=== PATIENT | female | born 1945 | race African-American/Black ===

== ENCOUNTER 2021-02-04 18:35 | Inpatient (IN) | payer OTHER ==
[~2021-02-04] VITALS: Ht 149.9 cm; Wt 100.2 kg
[~2021-02-04 18:35] MED LIST: AMLO-187 PO; CARV6.253 PO; CLOP75TA PO; FURO20TA3 PO; GLIP10TA13 PO; HYDR100T24 PO; INSU100I13 SQ; LEVO150T5 PO; PANT40TA6 PO; SIMV20TA18 PO; SPIR50TA4 PO
[2021-02-04 21:34] LABS: BILIRUBIN,URINE MODERATE (NEG); CLARITY,URINE CLOUDY; COLOR,URINE ORANGE; NITRITE,URINE NEGATIVE (NEG); PH,URINE 5.5 (<5.0-8.0); PROTEIN,URINE 100 mg/dL (NEG-TRACE)
[2021-02-04 22:06] LABS: BASO # 0.1 x10^3/uL (0.0-0.2); BASO % 1 % (0-3); EOS % 0 % (0-3); HEMATOCRIT 43.6 % (36.0-47.0); HEMOGLOBIN 14.3 g/dL (12.0-15.5); LYMPH % 8 % (24-48); MEAN CORPUSCULAR HEMOGLOBIN 27 pg (25-35); MEAN CORPUSCULAR HGB CONC 33 g/dL (31-37); MEAN CORPUSCULAR VOLUME 83 fL (79-100); MONO # 0.8 x10^3/uL (0.0-1.1); MONO % 6 % (0-9); NEUT # 11.4 x10^3/uL (1.8-7.7); NEUT % 86 % (31-73); PLATELET COUNT 270 x10^3/uL (140-400); RED BLOOD COUNT 5.26 x10^6/uL (3.50-5.40); RED CELL DISTRIBUTION WIDTH 15.3 % (11.5-14.5); WHITE BLOOD COUNT 13.3 x10^3/uL (4.0-11.0)
--- NOTE | 2021-02-04 22:07 | PHYS DOC ---
Past Medical History Past Medical History: CHF, Diabetes-Type II, High Cholesterol, Hypertension, Hypothyroid Past Surgical History: Hysterectomy, Other Additional Past Surgical Histo: EYE SURGERY Smoking Status: Never Smoker Alcohol Use: None General Adult EDM: Chief Complaint: CONSTIPATION HPI: HPI: Patient is a 75 year old female with history of CHF, DM, HTN, HLD who presents with 9 days of constipation. Has been straining to have bowel movements, but is not having anything come out. Does continue to pass gas. Has continued to eat and drink, but has a lower appetite than usual. Denies nausea/vomiting. No fevers, but does endorse occasional chills. States that she thinks this is due to her taking Tylenol 3 (with codeine). Has not taken any laxatives or stool softeners. Denies any rectal discomfort with attempts at bowel movements. Surgical history includes hysterectomy. During this timeframe, she has been unable to get herself up out of a chair well. His been having to have family help her, but no one lives with her full- time. She is concerned that she is unable to take care of her self at home. Review of Systems: Review of Systems: Constitutional: Denies fever reports occasional chills.] Eyes: Denies change in visual acuity. [] HENT: Denies nasal congestion or sore throat. [] Respiratory: Denies cough or shortness of breath. [] Cardiovascular: Denies chest pain or edema. [] GI: Denies abdominal pain, nausea, vomiting, bloody stools or diarrhea. Reports constipation [] : Denies dysuria. [] Musculoskeletal: Denies back pain or joint pain. [] Integument: Denies rash. [] Neurologic: Denies headache, focal weakness or sensory changes. [] Endocrine: Denies polyuria or polydipsia. [] Lymphatic: Denies swollen glands. [] Psychiatric: Denies depression or anxiety. [] Heart Score: C/O Chest Pain: No Allergies: Allergies: Allergies Coded Allergies Type Severity Reaction Last Updated Verified No Known Drug Allergies 12/12/15 No Physical Exam: PE: Constitutional: Appears very weak, required full 2 person assist from wheelchair to bed and almost slipped off of bed onto the floor. HENT: Normocephalic, atraumatic Eyes: PERRLA, EOMI, conjunctiva normal, no discharge. [] Neck: Normal range of motion, no tenderness, supple, no stridor. [] Cardiovascular:Heart rate regular rhythm, no murmur [] Lungs & Thorax: Bilateral breath sounds clear to auscultation [] Abdomen: Soft, RLQ and LLQ ttp. Rectal: no stool, blood or masses on BURAK. Skin: Warm, dry, no erythema, no rash. [] Back: No tenderness, no CVA tenderness. [] Extremities: No tenderness, no cyanosis, no clubbing, ROM intact, no edema. [] Neurologic: Alert and oriented X 3, normal motor function, normal sensory function, no focal deficits noted. [] Psychologic: Affect normal, judgement normal, mood normal. [] EKG: EKG: [] Radiology/Procedures: Radiology/Procedures: [] Impression: [facility] [address] [place] [address] IMAGING REPORT Signed PATIENT: ABBIE SANON ACCOUNT: [id number] : 1945 LOCATION: ER AGE: 75 SEX: F EXAM STATUS: REG ER ORD. PHYSICIAN: SINCERE STEVENS MD REASON: constipation, abd pain, r/o obstruction;OMNI 300, 60ML PROCEDURE: CT ABD PELV W/ IV CONTRST ONLY Examination: CT of the abdomen pelvis with IV contrast HISTORY: History of constipation, abdominal pain COMPARISON: None available TECHNIQUE: Axial CT images of the abdomen pelvis were performed with IV contrast. Coronal and sagittal reformats are performed Exposure: One or more of the following individualized dose reduction techniques were utilized for this examination: 1. Automated exposure control 2. Adjustment of the mA and/or kV according to patient size 3. Use of iterative reconstruction technique FINDINGS: Mild bibasilar lungs are clear. No evidence of free air identified in the abdomen. The liver, spleen, adrenals grossly appears unremarkable. The gallbladder is mildly distended. Moderate-sized hiatal hernia. Stomach is mildly distended. The visualized pancreas grossly appears unremarkable. The small bowel is nondilated. Moderate amount of feces identified in the colon. Multiple sigmoid colon diverticulosis. Mild fat stranding identified about the sigmoid colon. The appendix is normal. The urinary bladder is mildly distended. The bilateral kidneys enhance symmetrically. Moderate degenerative changes lumbar spine. IMPRESSION: 1. Multiple sigmoid colon diverticulosis. Mild fat stranding identified about the sigmoid colon could be mild diverticulitis. 2. Moderate-sized hiatal hernia. Electronically signed by: Saul Rush MD (02/04/2021 11:20 PM) [id number] DICTATED and SIGNED BY: SAUL RUSH MD DATE: 02/04/21 [id number] 0 Course & Med Decision Making: Course & Med Decision Making Pertinent Labs and Imaging studies reviewed. (See chart for details) Patient is 75-year-old female history of DM, CHF, HTN, HLD, hysterectomy who presents with 9 days of constipation in the setting of taking Tylenol with codeine. On exam she is generally weak, and required a full 2 person assist from wheelchair to the bed, and almost fell to the floor in doing so. She does live alone, I do not feel that she will be safe to return home. No rectal impaction on exam. Regarding her constipation, opiate effect does seem most likely, however she does have tenderness to palpation on examination. Will obtain CT abdomen/pelvis to exclude mass, partial obstruction. Patient will require admission following completion of her ED work-up. She is agreeable to this plan. 2206 CT shows concern for diverticulitis, white count elevated, and she does have left lower quadrant tenderness to palpation. We will treat with p.o. Augmentin. [id number] Dragon Disclaimer: Dragon Disclaimer: This electronic medical record was generated, in whole or in part, using a voice recognition dictation system. Departure Departure Impression: Primary Impression: Unable to care for self Additional Impressions: Diverticulitis Constipation Disposition: ADMITTED INPATIENT Admitting Physician: KAVEH PHOENIX) Condition: STABLE Referrals: UNKNOWN PCP NAME (PCP) SINCERE STEVENS MD Feb 04, 2021 22:07
[2021-02-04 22:08] LABS: BACTERIA,URINE MANY /HPF (0-FEW); HYALINE CASTS, URINE FEW /HPF; RBC,URINE 0 /HPF (0-2)
[2021-02-04 22:19] LABS: CREATININE 1.2 mg/dL (0.6-1.0); GFR 53.1; POTASSIUM 3.7 mmol/L (3.5-5.1)
[2021-02-04 22:26] LABS: ALBUMIN 3.3 g/dL (3.4-5.0); ALBUMIN/GLOBULIN RATIO 0.6 (1.0-1.7); TOTAL BILIRUBIN 0.5 mg/dL (0.2-1.0); TOTAL PROTEIN 8.6 g/dL (6.4-8.2)
[2021-02-04] MEDS ORDERED: CONTRAST GIVEN. MC PRN (23:00)
[2021-02-04] MEDS ORDERED: IOHEXOL 300 MG/ML 100ML VIAL. IV ONE (23:00)
--- NOTE | 2021-02-04 23:23 | RAD ---
Examination: CT of the abdomen pelvis with IV contrast HISTORY: History of constipation, abdominal pain COMPARISON: None available TECHNIQUE: Axial CT images of the abdomen pelvis were performed with IV contrast. Coronal and sagitta l reformats are performed Exposure: One or more of the following individualized dose reduction techniques were utilized for thi s examination: 1. Automated exposure control 2. Adjustment of the mA and/or kV according to patient size 3. Use of iterative reconstruction technique FINDINGS: Mild bibasilar lungs are clear. No evidence of free air identified in the abdomen. The liver, spleen, adrenals grossly appears unremarkable. The gallbladder is mildly distended. Moderate-sized hiatal he rnia. Stomach is mildly distended. The visualized pancreas grossly appears unremarkable. The small agatha wel is nondilated. Moderate amount of feces identified in the colon. Multiple sigmoid colon diverticu losis. Mild fat stranding identified about the sigmoid colon. The appendix is normal. The urinary ric dder is mildly distended. The bilateral kidneys enhance symmetrically. Moderate degenerative changes lumbar spine. IMPRESSION: 1. Multiple sigmoid colon diverticulosis. Mild fat stranding identified about the sigmoid colon coul d be mild diverticulitis. 2. Moderate-sized hiatal hernia. Electronically signed by: Saul Rush MD (02/04/2021 11:20 PM) [id number]
[2021-02-04] MEDS ORDERED: POLYETHYLENE GLYCOL 3350 17 GM PACKET. PO ONE (23:30)
[2021-02-04] MEDS ORDERED: AMOXICILLIN/K CLAV 875/125MG TABLET. PO ONE (23:30)
[2021-02-04 23:56] LABS: PLT ESTIMATE ADEQUATE (ADEQUATE)
[2021-02-05] MEDS ORDERED: ACET1TAB33 PO (01:05)
[2021-02-05] MEDS ORDERED: METF-658 PO (01:05)
[2021-02-05] MEDS ORDERED: HYDR100T24 PO (01:05)
[2021-02-05] MEDS ORDERED: SPIR50TA4 PO (01:05)
[2021-02-05 01:09] VITALS: BP 187/85
[2021-02-05] MEDS ORDERED: LABETALOL 20 MG/4 ML DISP.SYRIN. IVP PRN (01:45)
[2021-02-05] MEDS ORDERED: MORPHINE SULFATE 4 MG/ML INJ. IV PRN (01:45)
[2021-02-05 03:11] VITALS: BP 143/65
--- NOTE | 2021-02-05 07:28 | PDOC1 ---
History and Physical Date of Admission Date of Admission DATE: 02/05/21 TIME: 06:42 Identification/Chief Complaint Chief Complaint Constipation Source Source: Chart review, Patient History of Present Illness History of Present Illness Patient is a 75-year-old female with past medical history of CHF, HTN, DM2, presents to the ED with complaints of constipation and lower abdominal pain. She reports associated decreased appetite. Continues to have flatus. States she feels her symptoms are due to her taking Tylenol 3. She has not tried any laxatives or stool softeners for her symptoms. She denies any nausea or vo miting. She does also note some generalized weakness and is concerned that she is unable to take care of herself as she lives alone. In the ED she was requiring 2 person assist from wheelchair to bed. Labs on admission showed WBC 13.3, BUN 24, creatinine 1.2, EGFR 53.1, CBG 128, albumin 3.3. CT abdomen pelvis multiple sigmoid colon diverticulosis, mild fat stranding identified about the sigmoid colon could be mild diverticulitis. She received MiraLAX and Augmentin in the ED. Will admit patient for further medical management. Past Medical History Cardiovascular: CAD, CHF, HTN, Hyperlipidemia Pulmonary: No pertinent hx CENTRAL NERVOUS SYSTEM: Other GI: GERD Heme/Onc: No pertinent hx Hepatobiliary: No pertinent hx Psych: No pertinent hx Musculoskeletal: Osteoarthritis Rheumatologic: No pertinent hx Infectious disease: No pertinent hx Renal/: No pertinent hx Endocrine: Diabetes, Hypothyroidism Past Surgical History Past Surgical History: Cataract Removal, Hysterectomy Family History Family History: Hypertension Social History Smoke: No ALCOHOL: none Drugs: None Current Problem List Problem List Problems Medical Problems: (1) Constipation Status: Acute (2) Diverticulitis Status: Acute (3) Unable to care for self Status: Acute Current Medications Current Medications Current Medications Iohexol (Omnipaque 300 Mg/ml) 60 ml 1X ONCE IV ; Start 02/04/21 at 23:00; Stop 02/04/21 at 23:01; Status DC Info (CONTRAST GIVEN -- Rx MONITORING) 1 each PRN DAILY PRN MC SEE COMMENTS; Start 02/04/21 at 23:00; Stop 02/06/21 at 22:59 Amoxicillin/ Clavulanate Potassium (Augmentin 875/ 125mg) 1 tab 1X ONCE PO Last administered on 02/05/21at 00:35; Start 02/04/21 at 23:30; Stop 02/04/21 at 23:31; Status DC Polyethylene Glycol (miraLAX PACKET) 17 gm 1X ONCE PO ; Start 02/04/21 at 23:30; Stop 02/04/21 at 23:31; Status DC Labetalol HCl (Normodyne Iv Push) 10 mg PRN Q4HRS PRN IVP HYPERTENSION Last administered on 02/05/21at 02:10; Start 02/05/21 at 01:45 Morphine Sulfate (Morphine Sulfate) 4 mg PRN Q2HR PRN IV PAIN Last administered on 02/05/21at 02:10; Start 02/05/21 at 01:45 Active Scripts Active Reported Hydralazine Hcl 100 Mg Tablet 1 Tab PO TID Acetaminophen-Cod #3 Tablet (Acetaminophen/Codeine Phosphate) 1 Each Tablet 1 Tab PO BID PRN Metformin Hcl Er (Metformin Hcl) 500 Mg Tab.er.24h 500 Mg PO DAILYWSUP Spironolactone 50 Mg Tablet 50 Mg PO DAILY Carvedilol 6.25 Mg Tablet 1 Tab PO BID Lantus Solostar (Insulin Glargine,Hum.rec.anlog) 100 Unit/1 Ml Insuln.pen 30 Units SQ QHS Pantoprazole Sodium 40 Mg Tablet.dr 1 Tab PO DAILY Furosemide 20 Mg Tablet 20 Mg PO DAILY Glipizide 10 Mg Tablet 1 Tab PO BID Levothyroxine Sodium 150 Mcg Tablet 1 Tab PO DAILY Clopidogrel (Clopidogrel Bisulfate) 75 Mg Tablet 75 Mg PO DAILY Simvastatin 20 Mg Tablet 20 Mg PO HS Amlodipine Besylate 10 Mg Tablet 10 Mg PO DAILY Allergies Allergies: Coded Allergies: No Known Drug Allergies (Unverified , 12/12/15) ROS Review of System GENERAL: No history of weight change, weakness or fevers. SKIN: No bruising, hair changes or rashes. EYES: No blurred, double or loss of vision. NOSE AND THROAT: No history of nosebleeds, hoarseness or sore throat. HEART: Denies chest pain, denies palpitations. LUNGS: Denies cough, hemoptysis, wheezing or shortness of breath. GASTROINTESTINAL: Constipation, abdominal pain. Denies nausea, vomiting. GENITOURINARY: Denies dysuria, frequency, urgency, hematuria. NEUROLOGIC: Denies history of numbness, tingling, tremor or weakness. PSYCHIATRIC: Denies anxiety, denies depression. ENDOCRINE: No history of heat or cold intolerance, polyuria or polydipsia. EXTREMITIES: Denies muscle weakness, joint pain, pain on walking or stiffness. Physical Exam Physical Exam General: Alert, Oriented X3, Cooperative, No acute distress. Morbid obesity. HEENT: PERRLA, EOMI Lungs: Decreased breath sounds bilaterally, Normal air movement Heart: RRR, no murmurs Cardiovascular: S1, S2 Abdomen: Left lower quadrant abdominal tenderness. Normal bowel sounds, Soft. Extremities: No clubbing, No cyanosis Skin: No rashes, No significant lesion Neuro: Normal speech, Normal tone, Sensation intact Psych/Mental Status: Mental status NL, Mood NL Vitals Vitals Vital Signs Date Time Temp Pulse Resp B/P (MAP) Pulse Ox O2 Delivery O2 Flow Rate FiO2 02/05/21 03:11 98.3 80 16 143/65 (91) 91 Room Air 98.3 Labs Labs Laboratory Tests Test 02/04/21 21:26 02/04/21 21:57 02/05/21 03:40 Urine Collection Type Unknown Urine Color [place] Urine Clarity Cloudy Urine pH 5.5 (<5.0-8.0) Urine Specific [place] >=1.030 (1.000-1.030) Urine Protein 100 mg/dL (NEG-TRACE) Urine Glucose (UA) Negative mg/dL (NEG) Urine Ketones (Stick) Trace mg/dL (NEG) Urine Blood Negative (NEG) Urine Nitrite Negative (NEG) Urine Bilirubin Moderate (NEG) Urine Urobilinogen Dipstick 1.0 mg/dL (0.2 mg/dL) Urine Leukocyte Esterase Small (NEG) Urine RBC 0 /HPF (0-2) Urine WBC 5-10 /HPF (0-4) Urine Squamous Epithelial Cells Many /LPF Urine Bacteria Many /HPF (0-FEW) Urine Hyaline Casts Few /HPF Urine Mucus Mod /LPF White Blood Count 13.3 x10^3/uL (4.0-11.0) Red Blood Count 5.26 x10^6/uL (3.50-5.40) Hemoglobin 14.3 g/dL (12.0-15.5) Hematocrit 43.6 % (36.0-47.0) Mean Corpuscular Volume 83 fL (79-100) Mean Corpuscular Hemoglobin 27 pg (25-35) Mean Corpuscular Hemoglobin Concent 33 g/dL (31-37) Red Cell Distribution Width 15.3 % (11.5-14.5) Platelet Count 270 x10^3/uL (140-400) Neutrophils (%) (Auto) 86 % (31-73) Lymphocytes (%) (Auto) 8 % (24-48) Monocytes (%) (Auto) 6 % (0-9) Eosinophils (%) (Auto) 0 % (0-3) Basophils (%) (Auto) 1 % (0-3) Neutrophils # (Auto) 11.4 x10^3/uL (1.8-7.7) Lymphocytes # (Auto) 1.0 x10^3/uL (1.0-4.8) Monocytes # (Auto) 0.8 x10^3/uL (0.0-1.1) Eosinophils # (Auto) 0.0 x10^3/uL (0.0-0.7) Basophils # (Auto) 0.1 x10^3/uL (0.0-0.2) Platelet Estimate Adequate (ADEQUATE) Large Platelets Few Giant Platelets Occ Sodium Level 143 mmol/L (136-145) Potassium Level 3.7 mmol/L (3.5-5.1) Chloride Level 101 mmol/L (98-107) Carbon Dioxide Level 29 mmol/L (21-32) Anion Gap 13 (6-14) Blood Urea Nitrogen 24 mg/dL (7-20) Creatinine 1.2 mg/dL (0.6-1.0) Estimated GFR (Cockcroft-Gault) 53.1 BUN/Creatinine Ratio 20 (6-20) Glucose Level 128 mg/dL (70-99) Calcium Level 11.0 mg/dL (8.5-10.1) Total Bilirubin 0.5 mg/dL (0.2-1.0) Aspartate Amino Transf (AST/SGOT) 20 U/L (15-37) Alanine Aminotransferase (ALT/SGPT) 31 U/L (14-59) Alkaline Phosphatase 98 U/L (46-116) Total Protein 8.6 g/dL (6.4-8.2) Albumin 3.3 g/dL (3.4-5.0) Albumin/Globulin Ratio 0.6 (1.0-1.7) Lactic Acid Level 0.9 mmol/L (0.4-2.0) Laboratory Tests Test 02/04/21 21:26 02/04/21 21:57 02/05/21 03:40 Urine Collection Type Unknown Urine Color [place] Urine Clarity Cloudy Urine pH 5.5 (<5.0-8.0) Urine Specific [place] >=1.030 (1.000-1.030) Urine Protein 100 mg/dL (NEG-TRACE) Urine Glucose (UA) Negative mg/dL (NEG) Urine Ketones (Stick) Trace mg/dL (NEG) Urine Blood Negative (NEG) Urine Nitrite Negative (NEG) Urine Bilirubin Moderate (NEG) Urine Urobilinogen Dipstick 1.0 mg/dL (0.2 mg/dL) Urine Leukocyte Esterase Small (NEG) Urine RBC 0 /HPF (0-2) Urine WBC 5-10 /HPF (0-4) Urine Squamous Epithelial Cells Many /LPF Urine Bacteria Many /HPF (0-FEW) Urine Hyaline Casts Few /HPF Urine Mucus Mod /LPF White Blood Count 13.3 x10^3/uL (4.0-11.0) Red Blood Count 5.26 x10^6/uL (3.50-5.40) Hemoglobin 14.3 g/dL (12.0-15.5) Hematocrit 43.6 % (36.0-47.0) Mean Corpuscular Volume 83 fL (79-100) Mean Corpuscular Hemoglobin 27 pg (25-35) Mean Corpuscular Hemoglobin Concent 33 g/dL (31-37) Red Cell Distribution Width 15.3 % (11.5-14.5) Platelet Count 270 x10^3/uL (140-400) Neutrophils (%) (Auto) 86 % (31-73) Lymphocytes (%) (Auto) 8 % (24-48) Monocytes (%) (Auto) 6 % (0-9) Eosinophils (%) (Auto) 0 % (0-3) Basophils (%) (Auto) 1 % (0-3) Neutrophils # (Auto) 11.4 x10^3/uL (1.8-7.7) Lymphocytes # (Auto) 1.0 x10^3/uL (1.0-4.8) Monocytes # (Auto) 0.8 x10^3/uL (0.0-1.1) Eosinophils # (Auto) 0.0 x10^3/uL (0.0-0.7) Basophils # (Auto) 0.1 x10^3/uL (0.0-0.2) Platelet Estimate Adequate (ADEQUATE) Large Platelets Few Giant Platelets Occ Sodium Level 143 mmol/L (136-145) Potassium Level 3.7 mmol/L (3.5-5.1) Chloride Level 101 mmol/L (98-107) Carbon Dioxide Level 29 mmol/L (21-32) Anion Gap 13 (6-14) Blood Urea Nitrogen 24 mg/dL (7-20) Creatinine 1.2 mg/dL (0.6-1.0) Estimated GFR (Cockcroft-Gault) 53.1 BUN/Creatinine Ratio 20 (6-20) Glucose Level 128 mg/dL (70-99) Calcium Level 11.0 mg/dL (8.5-10.1) Total Bilirubin 0.5 mg/dL (0.2-1.0) Aspartate Amino Transf (AST/SGOT) 20 U/L (15-37) Alanine Aminotransferase (ALT/SGPT) 31 U/L (14-59) Alkaline Phosphatase 98 U/L (46-116) Total Protein 8.6 g/dL (6.4-8.2) Albumin 3.3 g/dL (3.4-5.0) Albumin/Globulin Ratio 0.6 (1.0-1.7) Lactic Acid Level 0.9 mmol/L (0.4-2.0) Images Images [facility] [address] [place], [place] [id number] IMAGING REPORT Signed PATIENT: ABBIE SANON ACCOUNT: [id number] : 1945 LOCATION: ER AGE: 75 SEX: F EXAM STATUS: REG ER ORD. PHYSICIAN: SINCERE STEVENS MD REASON: constipation, abd pain, r/o obstruction;OMNI 300, 60ML PROCEDURE: CT ABD PELV W/ IV CONTRST ONLY Examination: CT of the abdomen pelvis with IV contrast HISTORY: History of constipation, abdominal pain COMPARISON: None available TECHNIQUE: Axial CT images of the abdomen pelvis were performed with IV contrast. Coronal and sagittal reformats are performed Exposure: One or more of the following individualized dose reduction techniques were utilized for this examination: 1. Automated exposure control 2. Adjustment of the mA and/or kV according to patient size 3. Use of iterative reconstruction technique FINDINGS: Mild bibasilar lungs are clear. No evidence of free air identified in the abdomen. The liver, spleen, adrenals grossly appears unremarkable. The gallbladder is mildly distended. Moderate-sized hiatal hernia. Stomach is mildly distended. The visualized pancreas grossly appears unremarkable. The small bowel is nondilated. Moderate amount of feces identified in the colon. Multiple sigmoid colon diverticulosis. Mild fat stranding identified about the sigmoid colon. The appendix is normal. The urinary bladder is mildly distended. The bilateral kidneys enhance symmetrically. Moderate degenerative changes lumbar spine. IMPRESSION: 1. Multiple sigmoid colon diverticulosis. Mild fat stranding identified about the sigmoid colon could be mild diverticulitis. 2. Moderate-sized hiatal hernia. VTE Prophylaxis Ordered VTE Prophylaxis Devices: No VTE Pharmacological Prophylaxi: Yes Assessment/Plan Assessment/Plan Physical debility Deconditioning Diverticulitis HTN HLD DM2 Morbid obesity Plan: Will treat diverticulitis with Augmentin and clear liquid diet My initial plan was to provide patient with PT/OT with goal to transition to rehab. Patient states that her niece will be moving in with her today and feels comfortable discharging home with family care. She is amenable to home health assistance. Will discharge on Augmentin and daily MiraLAX. Recommend follow-up with PCP in next 7-10 days. Justifications for Admission Other Justification DWIGHT SMITH MD Feb 05, 2021 07:28
[2021-02-05 07:35] VITALS: BP 152/72
[2021-02-05] MEDS ORDERED: MAGNESIUM HYDROXIDE 2,400 MG/30 ML ORAL.SUSP. PO PRN (07:45)
[2021-02-05] MEDS ORDERED: ACETAMINOPHEN 325 MG TABLET. PO PRN (07:45)
[2021-02-05] MEDS ORDERED: CALCIUM CARBONATE 500 MG TAB.CHEW PO PRN (07:45)
[2021-02-05] MEDS ORDERED: ONDANSETRON PF 4 MG/2 ML VIAL. IVP PRN (07:45)
[2021-02-05] MEDS ORDERED: MAG HYDROX/ALUMINUM HYD/SIMETH 30 ML ORAL.SUSP PO PRN (07:45)
[2021-02-05] MEDS ORDERED: DEXTROSE 50% 25 GM / 50ML DISP.SYRIN. IV PRN (07:45)
[2021-02-05] MEDS ORDERED: HYDROcodone/APAP 5/325MG 1 TAB TABLET PO PRN (07:45)
[2021-02-05] MEDS ORDERED: ZOLPIDEM 5 MG TABLET. PO PRN (07:45)
[2021-02-05] MEDS ORDERED: hydrALAZINE 20 MG/ML VIAL. IVP PRN (08:00)
[2021-02-05] MEDS ORDERED: PANTOPRAZOLE 40 MG TABLET.DR. PO SCH (08:00)
[2021-02-05] MEDS: INSULIN LISPRO 300 UNITS/3 ML VIAL. SQ SCH ×3 (08:00→17:00)
[2021-02-05] MEDS: CARVEDILOL 6.25 MG TABLET. PO SCH ×2 (08:51→16:43)
[2021-02-05] MEDS: glipiZIDE 5 MG TABLET PO SCH ×2 (08:51→16:43)
[2021-02-05] MEDS ORDERED: ENOXAPARIN 40 MG/0.4 ML SYRINGE. SQ SCH (09:00)
[2021-02-05] MEDS ORDERED: SPIRONOLACTONE 25 MG TABLET PO SCH (09:00)
[2021-02-05] MEDS ORDERED: FUROSEMIDE 20 MG TABLET PO SCH (09:00)
[2021-02-05] MEDS ORDERED: CLOPIDOGREL BISULFATE 75 MG TABLET PO SCH (09:00)
[2021-02-05] MEDS ORDERED: POLYETHYLENE GLYCOL 3350 17 GM PACKET. PO PRN (10:15)
[2021-02-05] MEDS ORDERED: LEVOTHYROXINE 150 MCG TABLET PO SCH (10:30)
[2021-02-05 10:51] VITALS: BP 125/60
--- NOTE | 2021-02-05 11:11 | PDOC3 ---
Discharge Summary Visit Information Date of Admission: Feb 05, 2021 Date of Discharge: Feb 05, 2021 Final Diagnosis Problems Medical Problems: (1) Constipation Status: Acute (2) Diverticulitis Status: Acute (3) Unable to care for self Status: Acute Brief Hospital Course Allergies Allergies Coded Allergies Type Severity Reaction Last Updated Verified No Known Drug Allergies 12/12/15 No Vital Signs Vital Signs Date Time Temp Pulse Resp B/P (MAP) Pulse Ox O2 Delivery O2 Flow Rate FiO2 02/05/21 10:51 97.9 80 20 125/60 (81) 95 Room Air 97.9 Lab Results Laboratory Tests Test 02/04/21 21:26 02/04/21 21:57 02/05/21 03:40 02/05/21 08:26 Urine Collection Type Unknown Urine Color Nicholas Urine Clarity Cloudy Urine pH 5.5 (<5.0-8.0) Urine Specific [place] >=1.030 (1.000-1.030) Urine Protein 100 mg/dL (NEG-TRACE) Urine Glucose (UA) Negative mg/dL (NEG) Urine Ketones (Stick) Trace mg/dL (NEG) Urine Blood Negative (NEG) Urine Nitrite Negative (NEG) Urine Bilirubin Moderate (NEG) Urine Urobilinogen Dipstick 1.0 mg/dL (0.2 mg/dL) Urine Leukocyte Esterase Small (NEG) Urine RBC 0 /HPF (0-2) Urine WBC 5-10 /HPF (0-4) Urine Squamous Epithelial Cells Many /LPF Urine Bacteria Many /HPF (0-FEW) Urine Hyaline Casts Few /HPF Urine Mucus Mod /LPF White Blood Count 13.3 x10^3/uL (4.0-11.0) Red Blood Count 5.26 x10^6/uL (3.50-5.40) Hemoglobin 14.3 g/dL (12.0-15.5) Hematocrit 43.6 % (36.0-47.0) Mean Corpuscular Volume 83 fL (79-100) Mean Corpuscular Hemoglobin 27 pg (25-35) Mean Corpuscular Hemoglobin Concent 33 g/dL (31-37) Red Cell Distribution Width 15.3 % (11.5-14.5) Platelet Count 270 x10^3/uL (140-400) Neutrophils (%) (Auto) 86 % (31-73) Lymphocytes (%) (Auto) 8 % (24-48) Monocytes (%) (Auto) 6 % (0-9) Eosinophils (%) (Auto) 0 % (0-3) Basophils (%) (Auto) 1 % (0-3) Neutrophils # (Auto) 11.4 x10^3/uL (1.8-7.7) Lymphocytes # (Auto) 1.0 x10^3/uL (1.0-4.8) Monocytes # (Auto) 0.8 x10^3/uL (0.0-1.1) Eosinophils # (Auto) 0.0 x10^3/uL (0.0-0.7) Basophils # (Auto) 0.1 x10^3/uL (0.0-0.2) Platelet Estimate Adequate (ADEQUATE) Large Platelets Few Giant Platelets Occ Sodium Level 143 mmol/L (136-145) Potassium Level 3.7 mmol/L (3.5-5.1) Chloride Level 101 mmol/L (98-107) Carbon Dioxide Level 29 mmol/L (21-32) Anion Gap 13 (6-14) Blood Urea Nitrogen 24 mg/dL (7-20) Creatinine 1.2 mg/dL (0.6-1.0) Estimated GFR (Cockcroft-Gault) 53.1 BUN/Creatinine Ratio 20 (6-20) Glucose Level 128 mg/dL (70-99) Calcium Level 11.0 mg/dL (8.5-10.1) Total Bilirubin 0.5 mg/dL (0.2-1.0) Aspartate Amino Transf (AST/SGOT) 20 U/L (15-37) Alanine Aminotransferase (ALT/SGPT) 31 U/L (14-59) Alkaline Phosphatase 98 U/L (46-116) Total Protein 8.6 g/dL (6.4-8.2) Albumin 3.3 g/dL (3.4-5.0) Albumin/Globulin Ratio 0.6 (1.0-1.7) Lactic Acid Level 0.9 mmol/L (0.4-2.0) C-Reactive Protein, Quantitative 85.0 mg/L (0-3.3) Glucose (Fingerstick) 104 mg/dL (70-99) Laboratory Tests Test 02/04/21 21:26 02/04/21 21:57 02/05/21 03:40 02/05/21 08:26 Urine Collection Type Unknown Urine Color Nicholas Urine Clarity Cloudy Urine pH 5.5 (<5.0-8.0) Urine Specific [place] >=1.030 (1.000-1.030) Urine Protein 100 mg/dL (NEG-TRACE) Urine Glucose (UA) Negative mg/dL (NEG) Urine Ketones (Stick) Trace mg/dL (NEG) Urine Blood Negative (NEG) Urine Nitrite Negative (NEG) Urine Bilirubin Moderate (NEG) Urine Urobilinogen Dipstick 1.0 mg/dL (0.2 mg/dL) Urine Leukocyte Esterase Small (NEG) Urine RBC 0 /HPF (0-2) Urine WBC 5-10 /HPF (0-4) Urine Squamous Epithelial Cells Many /LPF Urine Bacteria Many /HPF (0-FEW) Urine Hyaline Casts Few /HPF Urine Mucus Mod /LPF White Blood Count 13.3 x10^3/uL (4.0-11.0) Red Blood Count 5.26 x10^6/uL (3.50-5.40) Hemoglobin 14.3 g/dL (12.0-15.5) Hematocrit 43.6 % (36.0-47.0) Mean Corpuscular Volume 83 fL (79-100) Mean Corpuscular Hemoglobin 27 pg (25-35) Mean Corpuscular Hemoglobin Concent 33 g/dL (31-37) Red Cell Distribution Width 15.3 % (11.5-14.5) Platelet Count 270 x10^3/uL (140-400) Neutrophils (%) (Auto) 86 % (31-73) Lymphocytes (%) (Auto) 8 % (24-48) Monocytes (%) (Auto) 6 % (0-9) Eosinophils (%) (Auto) 0 % (0-3) Basophils (%) (Auto) 1 % (0-3) Neutrophils # (Auto) 11.4 x10^3/uL (1.8-7.7) Lymphocytes # (Auto) 1.0 x10^3/uL (1.0-4.8) Monocytes # (Auto) 0.8 x10^3/uL (0.0-1.1) Eosinophils # (Auto) 0.0 x10^3/uL (0.0-0.7) Basophils # (Auto) 0.1 x10^3/uL (0.0-0.2) Platelet Estimate Adequate (ADEQUATE) Large Platelets Few Giant Platelets Occ Sodium Level 143 mmol/L (136-145) Potassium Level 3.7 mmol/L (3.5-5.1) Chloride Level 101 mmol/L (98-107) Carbon Dioxide Level 29 mmol/L (21-32) Anion Gap 13 (6-14) Blood Urea Nitrogen 24 mg/dL (7-20) Creatinine 1.2 mg/dL (0.6-1.0) Estimated GFR (Cockcroft-Gault) 53.1 BUN/Creatinine Ratio 20 (6-20) Glucose Level 128 mg/dL (70-99) Calcium Level 11.0 mg/dL (8.5-10.1) Total Bilirubin 0.5 mg/dL (0.2-1.0) Aspartate Amino Transf (AST/SGOT) 20 U/L (15-37) Alanine Aminotransferase (ALT/SGPT) 31 U/L (14-59) Alkaline Phosphatase 98 U/L (46-116) Total Protein 8.6 g/dL (6.4-8.2) Albumin 3.3 g/dL (3.4-5.0) Albumin/Globulin Ratio 0.6 (1.0-1.7) Lactic Acid Level 0.9 mmol/L (0.4-2.0) C-Reactive Protein, Quantitative 85.0 mg/L (0-3.3) Glucose (Fingerstick) 104 mg/dL (70-99) Brief Hospital Course Ms. Diaz is a 75 old female who presented with constipation, diverticulitis, deconditioning. She was treated with oral Augmentin echo liquid diet. Had initial plan to have her discharged to rehab facility prior to home with her niece. However patient states she feels comfortable discharge home with family care and home health services. Discharge Information Condition at Discharge: Stable Disposition/Orders: D/C to Home w/ HH Scheduled Amlodipine Besylate (Amlodipine Besylate) 10 Mg Tablet, 10 MG PO DAILY, (Repo rted) Entered as Reported by: TRICIA MAST on 12/12/15 0900 Last Action: Continued on 02/05/21 0742 by DWIGHT SMITH MD Carvedilol (Carvedilol) 6.25 Mg Tablet, 1 TAB PO BID, (Reported) Entered as Reported by: SONIA JACKSON RN on 08/18/20909 Last Action: Continued on 02/05/21741 by DWIGHT SMITH MD Clopidogrel Bisulfate (Clopidogrel) 75 Mg Tablet, 75 MG PO DAILY for TO PREVENT BLOOD CLOTS, #30 Ref 0 (Reported) Entered as Reported by: TRICIA MAST on 12/12/15899 Last Action: Continued on 02/05/21741 by DWIGHT SMITH MD Furosemide (Furosemide) 20 Mg Tablet, 20 MG PO DAILY, (Reported) Entered as Reported by: TRICIA MAST on 12/12/15899 Last Action: Continued on 02/05/21741 by DWIGHT SMTIH MD Glipizide (Glipizide) 10 Mg Tablet, 1 TAB PO BID, #180 Ref 3 (Reported) Entered as Reported by: TRICIA MAST on 12/12/15899 Last Action: Converted on 02/05/21741 by DWIGHT SMITH MD Hydralazine Hcl (Hydralazine Hcl) 100 Mg Tablet, 1 TAB PO TID for HTN, #270 Ref 3 (Reported) Entered as Reported by: RORY CHRISTIAN RN on 02/05/21104 Last Action: Converted on 02/05/21741 by DWIGHT SMITH MD Insulin Glargine,Hum.rec.anlog (Lantus Solostar) 100 Unit/1 Ml Insuln.pen, 30 UNITS SQ QHS, (Reported) Entered as Reported by: SONIA JACKSON RN on 08/18/20909 Last Action: Converted on 02/05/21741 by DWIGHT SMITH MD Levothyroxine Sodium (Levothyroxine Sodium) 150 Mcg Tablet, 1 TAB PO DAILY, #90 Ref 3 (Reported) Entered as Reported by: TRICIA MAST on 12/12/15899 Last Action: Continued on 02/05/21741 by DWIGHT SMITH MD Metformin Hcl (Metformin Hcl Er) 500 Mg Tab.er.24h, 500 MG PO DAILYWSUP for ANT I-DIABETIC, Ref 0 (Reported) Entered as Reported by: RORY CHRISTIAN RN on 02/05/21104 Last Action: New Order on 02/05/21104 by RORY CHRISTIAN RN Pantoprazole Sodium (Pantoprazole Sodium) 40 Mg Tablet.dr, 1 TAB PO DAILY, (Reported) Entered as Reported by: SONIA JACKSON RN on 08/18/20909 Last Action: Continued on 02/05/21741 by DWIGHT SMITH MD Simvastatin (Simvastatin) 20 Mg Tablet, 20 MG PO HS for FOR CHOLESTEROL, #30 Ref 0 (Reported) Entered as Reported by: TRICIA MAST on 12/12/15 0900 Last Action: Continued on 02/05/21741 by DWIGHT SMITH MD Spironolactone (Spironolactone) 50 Mg Tablet, 50 MG PO DAILY for HTN, (Reported) Entered as Reported by: RORY CHRISTIAN RN on 02/05/21104 Last Action: Converted on 02/05/21741 by DWIGHT SMITH MD Scheduled PRN Acetaminophen With Codeine (Acetaminophen-Cod #3 Tablet) 1 Each Tablet, 1 TAB PO BID PRN for PAIN, (Reported) Entered as Reported by: RORY CHRISTIAN RN on 02/05/21104 Last Action: New Order on 02/05/21104 by RORY CHRISTIAN RN Justicifation of Admission Dx: Justifications for Admission: Justification of Admission Dx: Yes DWIGHT SMITH MD Feb 05, 2021 11:11
[2021-02-05] MEDS ORDERED: POLY17PO29 PO (11:13)
[2021-02-05] MEDS ORDERED: AMOX1TAB61 PO (11:14)
--- NOTE | 2021-02-05 11:15 | SNU/HH DC ---
DISCHARGE WITH HOME HEALTH DISCHARGE INFORMATION: Discharge Date: Feb 05, 2021 Final Diagnosis: Problems Medical Problems: (1) Constipation Status: Acute (2) Diverticulitis Status: Acute (3) Unable to care for self Status: Acute Condition on Discharge: Stable CODE STATUS: Code Status: Full HOME HEALTH: Face to Face: I certify this patient is under my care and that I, or a nurse practitioner or physician's recruitment and outreach assistant working with me, had a face to face encounter that meets the physician face to face encounter requirements with this patient on 02/05/2021. RN For Eval/Treatment: Yes Physical Therapy For: Evalulation/Treatment Occupational Therapy For: Evaluation/Treatment Pt Meets Homebound Status: Extreme weakness w/ amb., Fatigue w/ amb. POST DISCHARGE ORDERS: Activity Instructions for Disc: No restrictions Weight Bearing Status after Di: No restrictions DIET AFTER DISCHARGE: ADA CERTIFICATION STATEMENT: Certification Statement: Certification Statement: Based on the above finding, I certify that this patient is confined to the home and needs intermittent senior care care, physical therapy and/or speech therapy, or continues to need occupational therapy.~ This patient is under my care, and I have initiated the establishment of the plan of care.~ This patient will be followed by myself or a community physician who will periodically review the plan of care. Home Meds Reported Medications Hydralazine Hcl (HYDRALAZINE HCL) 100 Mg Tablet, 1 TAB PO TID for HTN, #270 TAB 3 Refills 02/05/21 Acetaminophen With Codeine (ACETAMINOPHEN-COD #3 TABLET) 1 Each Tablet, 1 TAB PO BID PRN for PAIN, TAB 02/05/21 Metformin Hcl (METFORMIN HCL ER) 500 Mg Tab.er.24h, 500 MG PO DAILYWSUP for ANTI-DIABETIC, TAB 0 Refills 02/05/21 Spironolactone (SPIRONOLACTONE) 50 Mg Tablet, 50 MG PO DAILY for HTN, TAB 02/05/21 Carvedilol (Carvedilol) 6.25 Mg Tablet, 1 TAB PO BID 08/18/20 Insulin Glargine,Hum.rec.anlog (LANTUS SOLOSTAR) 100 Unit/1 Ml Insuln.pen, 30 UNITS SQ QHS 08/18/20 Pantoprazole Sodium (Pantoprazole Sodium) 40 Mg Tablet.dr, 1 TAB PO DAILY 08/18/20 Furosemide (FUROSEMIDE) 20 Mg Tablet, 20 MG PO DAILY, TAB 12/12/15 Glipizide (GLIPIZIDE) 10 Mg Tablet, 1 TAB PO BID, #180 TAB 3 Refills 12/12/15 Levothyroxine Sodium (LEVOTHYROXINE SODIUM) 150 Mcg Tablet, 1 TAB PO DAILY, #90 TAB 3 Refills 12/12/15 Clopidogrel Bisulfate (CLOPIDOGREL) 75 Mg Tablet, 75 MG PO DAILY for TO PREVENT BLOOD CLOTS, #30 TAB 0 Refills 12/12/15 Simvastatin (SIMVASTATIN) 20 Mg Tablet, 20 MG PO HS for FOR CHOLESTEROL, #30 TAB 0 Refills 12/12/15 Amlodipine Besylate (AMLODIPINE BESYLATE) 10 Mg Tablet, 10 MG PO DAILY, TAB 12/12/15 DWIGHT SMITH MD Feb 05, 2021 11:15
[2021-02-05 15:20] VITALS: BP 149/62
[2021-02-05 16:43] VITALS: BP 149/62
--- NOTE | 2021-02-05 19:07 | NUR ---
Patient was supposed to discharge home with home health today but insurance denied. Dr. Saucedo was notified and okay with patient going home with self care since patient want to go back home. Patient discharged home via wheelchair accompanied by aid. Patient is stable, IV removed, and discharge paperwork given to patient. Patient verbalized understanding of follow up and discharge instruction.
[2021-02-05] MEDS ORDERED: SIMVASTATIN 20 MG TABLET PO SCH (21:00)
[2021-02-05] MEDS ORDERED: INSULIN GLARGINE SYRINGE. SQ SCH (21:00)
[2021-02-05 23:23] LABS: HEMOGLOBIN A1C 6.1 % (4.8-5.6)
== END 2021-02-05 19:13 | disposition home or self-care (01) | DRG 392 ==
LOC: ER 19:35 → 4 NORTH 23:30
PROVIDERS: ADMIT Family Medicine; ATTEND Family Medicine
DX: K57.32 Diverticulitis of large intestine without perforation or abscess without bleeding (principal); Z68.41 Body mass index [BMI] 40.0-44.9, adult; E03.9 Hypothyroidism, unspecified; E11.9 Type 2 diabetes mellitus without complications; E66.01 Morbid (severe) obesity due to excess calories; E78.00 Pure hypercholesterolemia, unspecified; E78.5 Hyperlipidemia, unspecified; I11.0 Hypertensive heart disease with heart failure; I25.10 Atherosclerotic heart disease of native coronary artery without angina pectoris; I50.9 Heart failure, unspecified; K44.9 Diaphragmatic hernia without obstruction or gangrene; K59.00 Constipation, unspecified; Z79.02 Long term (current) use of antithrombotics/antiplatelets; Z79.4 Long term (current) use of insulin; Z79.84 Long term (current) use of oral hypoglycemic drugs; Z79.899 Other long term (current) drug therapy; Z82.49 Family history of ischemic heart disease and other diseases of the circulatory system; Z90.710 Acquired absence of both cervix and uterus; K21.9 Gastro-esophageal reflux disease without esophagitis; M19.90 Unspecified osteoarthritis, unspecified site
CPT/HCPCS: 36415; 74177; 80053; 81001; 82962; 83036; 83605; 85025; 86140; 87040; J1650; J1815; J2270; J3490; 99285-25; G0378